=== PATIENT | female | born 1950 | race Caucasian/White ===

== ENCOUNTER 2017-09-25 11:19 | Emergency (ER) | payer MEDICARE ==
[2017-09-25] MEDS ORDERED: Cephalexin 250 MG CAP ONE (11:44)
[2017-09-25] MEDS ORDERED: methylPREDNISolone Acetate 40 mg/ml Vial ONE (11:44)
== END 2017-09-25 11:58 | disposition home or self-care (01) ==
LOC: BURERS 11:19
DX: T63.481A Toxic effect of venom of other arthropod, accidental (unintentional), initial encounter (principal); E78.5 Hyperlipidemia, unspecified; I10 Essential (primary) hypertension; Z79.899 Other long term (current) drug therapy; Z79.1 Long term (current) use of non-steroidal anti-inflammatories (NSAID)
CPT/HCPCS: 96372; J1030